=== PATIENT | male | born 1940 | race Two or more races ===

== ENCOUNTER 2024-07-19 05:40 | Inpatient (IN) | payer MEDICARE, BC ==
[2024-07-19] VITALS (11 sets, daily range): BP systolic 90–157; BP diastolic 61–97; PULSE 61–88; RESP 18; TEMP 97.5; O2SAT 98–100
[~2024-07-19] VITALS: Ht 167.6 cm; Wt 76.3 kg
[~2024-07-19 05:40] MED LIST: POM PO; TRAV0.0013 EACHEYE
[2024-07-19] MEDS: ROCURONIUM 10MG/ML 10ML VIAL IV ONE ×2 (05:44→05:47)
[2024-07-19] MEDS: ETOMIDATE (2MG/ML) 20ML VIAL IV ONE ×2 (05:47→07:01)
[2024-07-19] MEDS: PHENYLEPHRINE IV 250 ML IV SCH (05:56)
[2024-07-19] MEDS: PHENYLEPHRINE IV 250 ML IV ONE (06:02)
[2024-07-19] MEDS: PROPOFOL 100 ML IV SCH (06:30)
[2024-07-19] MEDS: PROPOFOL 100 ML IV ONE (06:30)
[2024-07-19 06:35] LABS: INR 1.13 (0.9-1.15); Partial Thromboplastin Time 25.6 SEC (24.5-34.5); Prothrombin Time 11.9 sec (9.3-11.8)
[2024-07-19 06:37] LABS: Hematocrit 30.2 % (41.0-53.0); Hemoglobin 10.1 g/dL (13.5-17.5); Mean Corpuscular Hemoglobin 32.3 pg (28.0-32.0); Mean Corpuscular Hgb Conc. 33.6 g/dL (32.0-36.0); Mean Corpuscular Volume 96.2 fL (80.0-100.0); Platelet Count (auto) 175 10^3/uL (140-450); Red Blood Cells 3.13 10^6/uL (4.5-5.90); Red Cell Distribution Width 16.7 % (11.8-14.3); White Blood Cell 3.4 10^3/uL (4.4-10.8)
[2024-07-19 06:44] LABS: Alanine Aminotransferase 365 U/L (7-40); Albumin 3.4 g/dL (3.2-4.8); Alkaline Phosphatase 72 U/L (46-116); Anion Gap 13 (5-15); Aspartate Aminotransferase 372 U/L (13-40); BUN/Creatinine Ratio 12.7 (10.0-20.0); Bilirubin, Total 0.5 mg/dL (0.2-1.0); Blood Urea Nitrogen 14 mg/dL (9-23); Calcium 8.1 mg/dL (8.7-10.4); Carbon Dioxide 19 mmol/L (20-31); Chloride 110 mmol/L (98-107); Glucose 251 mg/dL (74-106); Magnesium 1.4 mg/dL (1.6-2.6); Sodium 142 mmol/L (136-145); Total Protein 5.1 g/dL (5.7-8.2)
[2024-07-19] MEDS: SODIUM CHLORIDE 0.9% 1,000 ML IV ONE (07:06)
[2024-07-19 07:19] LABS: Basophils % (manual) 0 (0.0-2.0); Blast Cells 0; Metamyelocytes % 0; Myelocytes % 0; Promyelocytes % 0
[2024-07-19 07:58] LABS: Base Excess -6.7 mmol/L (-2.0-3.0)
[2024-07-19] MEDS: NITROGLYCERIN 2% OINT 1GM PKG TD ONE (08:22)
[2024-07-19 08:31] LABS: Anisocytosis Slight; Band Neutrophils % (manual) 4; Eosinophils % (manual) 1 (0-7); Lymphocytes % (manual) 56 (10.0-50.0); Monocytes % (manual) 6 (0-12); Ovalocytes FEW; Platelet Estimate Adequate; Reactive Lymphocytes 1; Tear Drop Cells FEW
[2024-07-19] MEDS: POTASSIUM CHL 20MEQ/100ML 100 ML IV SCH (08:50)
[2024-07-19 10:02] LABS: Urine Bacteria FEW /hpf (None Seen); Urine Blood 3+ /uL (Negative); Urine Protein, UAD 2+ (Negative); Urine Specific Gravity 1.011 (1.001-1.035); Urine Urobilinogen Normal (Negative); Urine WBC 8 /hpf (0 - 3)
[2024-07-19 10:05] LABS: Urine Clarity Cloudy (Clear); Urine Color Yellow (Yellow)
[2024-07-19] MEDS ORDERED: APIX2.5T PO (12:29)
[2024-07-19] MEDS ORDERED: DEXA4TAB PO (12:29)
[2024-07-19] MEDS ORDERED: LOS25T PO (12:29)
[2024-07-19] MEDS ORDERED: COLE1TAB2 PO (12:29)
[2024-07-19] MEDS ORDERED: SITA100T23 PO (12:29)
[2024-07-19] MEDS ORDERED: ATOR20TA50 PO (12:29)
[2024-07-19] MEDS ORDERED: BRIM0.2S17 RIGHTEYE (12:29)
[2024-07-19] MEDS ORDERED: NITROGLYCERIN 0.4 MG SL TAB SL PRN (12:30)
[2024-07-19] MEDS ORDERED: LORazepam 2MG/ML-1ML VIAL IV PRN (12:30)
[2024-07-19] MEDS ORDERED: MORPHINE SULFATE 4 MG/ML SYR/VIAL IV PRN (12:30)
[2024-07-19] MEDS ORDERED: MORPHINE SULFATE INJ 2 MG/ml SYRG IV PRN ×2 (12:30)
[2024-07-19] MEDS ORDERED: DEXTROSE (50%) 50ML SYRG IV PRN (12:30)
[2024-07-19 13:01] LABS: Triglycerides 89 mg/dL (< 150)
[2024-07-19 13:02] LABS: LDL Cholesterol 24 mg/dL (< 100)
[2024-07-19] MEDS: SODIUM CHLORIDE 0.9% 1,000 ML IV SCH (13:02)
[2024-07-19 13:03] LABS: Cholesterol 72 mg/dL (< 200); HDL Cholesterol 33 mg/dL (40-59)
[2024-07-19] MEDS: MAGNESIUM SULFATE 1GM/100ML 100 ML IV SCH (13:13)
[2024-07-19 14:08] LABS: Lactic Acid w/Reflex 3.8 mmol/L (0.4-2.0)
[2024-07-19] MEDS: SODIUM CHLORIDE 0.9% 2,000 ML IV ONE (14:27)
[2024-07-19] MEDS: VASOPRESSIN 20 UNITS in SODIUM CHL 0.9% 99 ML IV SCH (14:34)
[2024-07-19] MEDS: ALBUTEROL SULF 2.5 MG/0.5ML(0.5%) NEB SOLN NEB SCH (15:10)
[2024-07-19] MEDS: IPRATROPIUM BROM 0.5 MG/2.5ML INH SOL NEB SCH (15:10)
[2024-07-19] MEDS ORDERED: AMIODARONE 450mg/250ml AE 250 ML IV SCH ×2 (15:15→21:15)
[2024-07-19] MEDS: ACCU-CHEK COMFORT CURVE STRIP VI SCH (16:01)
[2024-07-19] MEDS: InsuLIN REG 1unit/0.01ml Soln (100units/ml) SC SCH (16:07)
[2024-07-20] VITALS (85 sets, daily range): BP systolic 85–142; BP diastolic 32–94; PULSE 61–97; RESP 11–30; TEMP 98.1–101.5; O2SAT 76–100
[2024-07-20 04:40] LABS: Hematocrit 33.4 % (41.0-53.0); Hemoglobin 11.2 g/dL (13.5-17.5); Mean Corpuscular Hemoglobin 32.7 pg (28.0-32.0); Mean Corpuscular Hgb Conc. 33.4 g/dL (32.0-36.0); Mean Corpuscular Volume 97.9 fL (80.0-100.0); Platelet Count (auto) 171 10^3/uL (140-450); Red Blood Cells 3.41 10^6/uL (4.5-5.90); Red Cell Distribution Width 17.5 % (11.8-14.3); White Blood Cell 5.2 10^3/uL (4.4-10.8)
[2024-07-20 04:44] LABS: Band Neutrophils % (manual) 0; Basophils % (manual) 0 (0.0-2.0); Blast Cells 0; Eosinophils % (manual) 0 (0-7); Metamyelocytes % 0; Myelocytes % 0; Promyelocytes % 0; Reactive Lymphocytes 0
[2024-07-20 05:05] LABS: Alanine Aminotransferase 272 U/L (7-40); Albumin 3.4 g/dL (3.2-4.8); Alkaline Phosphatase 72 U/L (46-116); Anion Gap 16 (5-15); Aspartate Aminotransferase 126 U/L (13-40); BUN/Creatinine Ratio 10.5 (10.0-20.0); Bilirubin, Total 0.5 mg/dL (0.2-1.0); Blood Urea Nitrogen 11 mg/dL (9-23); Calcium 7.6 mg/dL (8.7-10.4); Carbon Dioxide 18 mmol/L (20-31); Chloride 111 mmol/L (98-107); Glucose 191 mg/dL (74-106); Potassium 3.6 mmol/L (3.5-5.1); Sodium 145 mmol/L (136-145); Total Protein 5.1 g/dL (5.7-8.2)
[2024-07-20 05:15] LABS: Lactic Acid w/Reflex 6.4 mmol/L (0.4-2.0)
[2024-07-20 06:32] LABS: Base Excess -7.6 mmol/L (-2.0-3.0)
[2024-07-20] MEDS: PANTOPRAZOLE 40 MG/10 ML VIAL INJ IV SCH (08:17)
[2024-07-20] MEDS: ENOXAPARIN SOD 40 MG/0.4 ML SYRINGE SC SCH (08:17)
[2024-07-20 08:49] LABS: Lymphocytes % (manual) 30 (10.0-50.0); Monocytes % (manual) 14 (0-12)
[2024-07-20 08:50] LABS: Anisocytosis Slight; Ovalocytes FEW; Platelet Estimate Adequate
[2024-07-20] MEDS ORDERED: ENOXAPARIN SOD 40 MG/0.4 ML SYRINGE SC SCH (10:00)
[2024-07-20] MEDS ORDERED: VANCOMYCIN PER PHARMACY 0 MG IV SCH (10:45)
[2024-07-20] MEDS: NOREPINEPHRINE 8 MG/250ML KIT 250 ML IV SCH (11:16)
[2024-07-20 12:07] LABS: Base Excess -9.6 mmol/L (-2.0-3.0)
[2024-07-20] MEDS: fentaNYL Drip 2500mCg/250mlNS 250 ML IV SCH (12:24)
[2024-07-20] MEDS ORDERED: VANCOMYCIN 1GM/200ML PREMIX 200 ML IV SCH (12:30)
[2024-07-20] MEDS ORDERED: CEFEPIME 2GM/50ML NS 50 ML IV SCH (14:00)
[2024-07-20] MEDS: VANCOMYCIN 1,000 MG in D5W 5% 250 ML IV SCH (14:59)
[2024-07-20] MEDS: InsuLIN REG 1unit/0.01ml Soln (100units/ml) SC SCH (17:32)
[2024-07-20] MEDS: ACCU-CHEK COMFORT CURVE STRIP VI SCH (17:33)
[2024-07-20 18:59] LABS: Urine Bacteria FEW /hpf (None Seen); Urine Blood 2+ /uL (Negative); Urine Clarity Clear (Clear); Urine Mucus FEW (None Seen); Urine Protein, UAD Negative (Negative); Urine Specific Gravity 1.009 (1.001-1.035); Urine Urobilinogen Normal (Negative); Urine WBC 4 /hpf (0 - 3)
[2024-07-20 19:02] LABS: Urine Color Straw (Yellow)
[2024-07-20] MEDS: CEFEPIME 2GM/50ML NS 50 ML IV SCH (21:44)
[2024-07-20] MEDS: ACETAMINOPHEN 650 mg PER 20.3 mL UD PO PRN (21:44)
[2024-07-21] VITALS (107 sets, daily range): BP systolic 88–121; BP diastolic 14–70; PULSE 63–124; RESP 10–31; TEMP 96.1–100.4; O2SAT 86–100
[2024-07-21 04:38] LABS: Urine Bacteria None Seen /hpf (None Seen)
[2024-07-21 04:59] LABS: Alanine Aminotransferase 230 U/L (7-40); Alkaline Phosphatase 67 U/L (46-116); Anion Gap 12 (5-15); Calcium 7.7 mg/dL (8.7-10.4); Carbon Dioxide 19 mmol/L (20-31); Chloride 110 mmol/L (98-107); Glucose 284 mg/dL (74-106); Magnesium 1.6 mg/dL (1.6-2.6); Potassium 2.9 mmol/L (3.5-5.1); Sodium 141 mmol/L (136-145)
[2024-07-21 05:00] LABS: Albumin 3.2 g/dL (3.2-4.8); Aspartate Aminotransferase 59 U/L (13-40); BUN/Creatinine Ratio 12.3 (10.0-20.0); Bilirubin, Total 0.8 mg/dL (0.2-1.0); Blood Urea Nitrogen 14 mg/dL (9-23); Total Protein 5.1 g/dL (5.7-8.2)
[2024-07-21 05:22] LABS: Lactic Acid w/Reflex 6.5 mmol/L (0.4-2.0)
[2024-07-21 05:35] LABS: Urine Amorphous Crystal FEW /hpf (None Seen); Urine Blood 2+ /uL (Negative); Urine Clarity Ex.Turbid (Clear); Urine Color Light-Orange (Yellow); Urine Mucus FEW (None Seen); Urine Protein, UAD 1+ (Negative); Urine Specific Gravity 1.033 (1.001-1.035); Urine Urobilinogen Normal (Negative); Urine WBC 10 /hpf (0 - 3)
[2024-07-21 06:30] LABS: Base Excess -10.9 mmol/L (-2.0-3.0)
[2024-07-21 06:33] LABS: Hematocrit 29.6 % (41.0-53.0); Hemoglobin 10.1 g/dL (13.5-17.5); Mean Corpuscular Hemoglobin 32.9 pg (28.0-32.0); Mean Corpuscular Volume 96.6 fL (80.0-100.0); Platelet Count (auto) 142 10^3/uL (140-450); Red Blood Cells 3.07 10^6/uL (4.5-5.90); Red Cell Distribution Width 17.1 % (11.8-14.3); White Blood Cell 4.7 10^3/uL (4.4-10.8)
[2024-07-21 06:44] LABS: Basophils % (manual) 0 (0.0-2.0); Blast Cells 0; Eosinophils % (manual) 0 (0-7); Metamyelocytes % 0; Myelocytes % 0; Promyelocytes % 0; Reactive Lymphocytes 0
[2024-07-21] MEDS: ALBUMIN 25% 50 ML IV SCH (09:00)
[2024-07-21] MEDS: MAGNESIUM SULFATE 1GM/100ML 100 ML IV ONE ×2 (09:16→23:53)
[2024-07-21 09:31] LABS: Band Neutrophils % (manual) 2; Lymphocytes % (manual) 13 (10.0-50.0); Monocytes % (manual) 20 (0-12); Platelet Estimate Adequate
[2024-07-21] MEDS: POTASSIUM CHL 20MEQ/100ML 100 ML IV SCH (10:23)
[2024-07-21] MEDS: FUROSEMIDE 20 MG/2 ML VIAL IV SCH ×2 (10:35→18:55)
[2024-07-21 13:31] LABS: Base Excess -7.6 mmol/L (-2.0-3.0)
[2024-07-21] MEDS: VANCOMYCIN 1GM/250ML 250 ML IV SCH (17:00)
[2024-07-21 21:29] LABS: Chloride 110 mmol/L (98-107); Potassium 2.9 mmol/L (3.5-5.1); Sodium 141 mmol/L (136-145)
[2024-07-21 21:30] LABS: Anion Gap 7 (5-15); Calcium 8.1 mg/dL (8.7-10.4); Carbon Dioxide 24 mmol/L (20-31)
[2024-07-21 21:35] LABS: BUN/Creatinine Ratio 12.5 (10.0-20.0); Blood Urea Nitrogen 16 mg/dL (9-23)
[2024-07-21 21:38] LABS: Glucose 133 mg/dL (74-106)
[2024-07-21] MEDS: POTASSIUM CHL 20MEQ/100ML 100 ML IV ONE (23:53)
[2024-07-22] VITALS (108 sets, daily range): BP systolic 84–123; BP diastolic 55–82; PULSE 58–93; RESP 14–26; TEMP 96.1–100.4; O2SAT 86–100
[2024-07-22 05:52] LABS: Hemoglobin 8.8 g/dL (13.5-17.5); Mean Corpuscular Volume 94.6 fL (80.0-100.0)
[2024-07-22 05:54] LABS: Hematocrit 25.2 % (41.0-53.0); Mean Corpuscular Hemoglobin 32.8 pg (28.0-32.0); Mean Corpuscular Hgb Conc. 34.7 g/dL (32.0-36.0); Platelet Count (auto) 106 10^3/uL (140-450); Red Blood Cells 2.67 10^6/uL (4.5-5.90); Red Cell Distribution Width 17.3 % (11.8-14.3)
[2024-07-22 06:07] LABS: Alanine Aminotransferase 151 U/L (7-40); Albumin 3.3 g/dL (3.2-4.8); Alkaline Phosphatase 56 U/L (46-116); Anion Gap 8 (5-15); Aspartate Aminotransferase 36 U/L (13-40); BUN/Creatinine Ratio 13.8 (10.0-20.0); Blood Urea Nitrogen 18 mg/dL (9-23); Calcium 7.6 mg/dL (8.7-10.4); Carbon Dioxide 21 mmol/L (20-31); Chloride 110 mmol/L (98-107); Glucose 209 mg/dL (74-106); Potassium 4.1 mmol/L (3.5-5.1); Sodium 139 mmol/L (136-145)
[2024-07-22 06:08] LABS: Bilirubin, Total 1.1 mg/dL (0.2-1.0); Total Protein 4.9 g/dL (5.7-8.2)
[2024-07-22 06:29] LABS: White Blood Cell 1.2 10^3/uL (4.4-10.8)
[2024-07-22 06:34] LABS: Basophils % (manual) 0 (0.0-2.0); Blast Cells 0; Metamyelocytes % 0; Myelocytes % 0; Promyelocytes % 0; Reactive Lymphocytes 0
[2024-07-22 08:45] LABS: Band Neutrophils % (manual) 6; Eosinophils % (manual) 1 (0-7); Lymphocytes % (manual) 19 (10.0-50.0); Monocytes % (manual) 30 (0-12); Platelet Estimate Decreased
[2024-07-22 12:14] LABS: Hematocrit 26.1 % (41.0-53.0); Hemoglobin 9.2 g/dL (13.5-17.5); Mean Corpuscular Hemoglobin 33.3 pg (28.0-32.0); Mean Corpuscular Hgb Conc. 35.3 g/dL (32.0-36.0); Mean Corpuscular Volume 94.2 fL (80.0-100.0); Platelet Count (auto) 111 10^3/uL (140-450); Red Blood Cells 2.77 10^6/uL (4.5-5.90); Red Cell Distribution Width 17.4 % (11.8-14.3)
[2024-07-22 12:18] LABS: Basophils % (manual) 0 (0.0-2.0); Blast Cells 0; Eosinophils % (manual) 0 (0-7); Metamyelocytes % 0; Myelocytes % 0; Promyelocytes % 0; Reactive Lymphocytes 0
[2024-07-22 13:42] LABS: Band Neutrophils % (manual) 12; Lymphocytes % (manual) 16 (10.0-50.0); Monocytes % (manual) 23 (0-12)
[2024-07-22 13:43] LABS: Platelet Estimate Decreased
[2024-07-22 13:43] LABS: INR 1.13 (0.9-1.15); Partial Thromboplastin Time 43.8 SEC (24.5-34.5); Prothrombin Time 11.9 sec (9.3-11.8)
[2024-07-22] MEDS: LIDOCAINE 1% (LOCAL ANESTH.) PF 5ml SDV ID ONE (15:00)
[2024-07-22] MEDS: VANCOMYCIN 1GM/200ML PREMIX 0 ML IV ONE (17:15)
[2024-07-22] MEDS ORDERED: VANCOMYCIN 1GM/250ML 250 ML IV ONE (17:15)
[2024-07-22] MEDS: VANCOMYCIN 1GM/250ML 250 ML IV ONE (17:37)
[2024-07-22] MEDS: SODIUM CHLOR 0.9% PF (SALINE LOCK) 10ML VIAL/SYR IV SCH (22:24)
[2024-07-23] VITALS (105 sets, daily range): BP systolic 86–125; BP diastolic 48–82; PULSE 61–104; RESP 17–25; TEMP 97.5–98.7; O2SAT 93–100
[2024-07-23 04:10] LABS: Hematocrit 24.7 % (41.0-53.0); Hemoglobin 8.5 g/dL (13.5-17.5); Mean Corpuscular Hemoglobin 32.4 pg (28.0-32.0); Mean Corpuscular Hgb Conc. 34.3 g/dL (32.0-36.0); Mean Corpuscular Volume 94.5 fL (80.0-100.0); Platelet Count (auto) 100 10^3/uL (140-450); Red Blood Cells 2.61 10^6/uL (4.5-5.90); Red Cell Distribution Width 17.4 % (11.8-14.3); White Blood Cell 2.5 10^3/uL (4.4-10.8)
[2024-07-23 04:23] LABS: Basophils % (manual) 0 (0.0-2.0); Blast Cells 0; Eosinophils % (manual) 0 (0-7); Metamyelocytes % 0; Promyelocytes % 0; Reactive Lymphocytes 0
[2024-07-23 04:24] LABS: Alanine Aminotransferase 126 U/L (7-40); Albumin 3.2 g/dL (3.2-4.8); Alkaline Phosphatase 53 U/L (46-116); Anion Gap 8 (5-15); Aspartate Aminotransferase 26 U/L (13-40); BUN/Creatinine Ratio 17.1 (10.0-20.0); Blood Urea Nitrogen 25 mg/dL (9-23); Calcium 8.2 mg/dL (8.7-10.4); Carbon Dioxide 24 mmol/L (20-31); Chloride 107 mmol/L (98-107); Glucose 161 mg/dL (74-106); Sodium 139 mmol/L (136-145)
[2024-07-23 04:25] LABS: Bilirubin, Total 0.9 mg/dL (0.2-1.0)
[2024-07-23] MEDS: POTASSIUM CHL 20MEQ/100ML 100 ML IV ONE ×2 (05:47→10:23)
[2024-07-23 06:53] LABS: Band Neutrophils % (manual) 5; Lymphocytes % (manual) 19 (10.0-50.0); Monocytes % (manual) 17 (0-12); Myelocytes % 1; Platelet Estimate Decreased
[2024-07-23 06:54] LABS: Ovalocytes FEW
[2024-07-23 06:55] LABS: Anisocytosis Slight
[2024-07-23 08:02] LABS: Base Excess -1.7 mmol/L (-2.0-3.0)
[2024-07-23] MEDS: VANCOMYCIN 1GM/200ML PREMIX 200 ML IV ONE (17:00)
[2024-07-23] MEDS: PIPERACILLIN-TAZOB 3.375GM 100 ML IV SCH (22:07)
[2024-07-24] VITALS (108 sets, daily range): BP systolic 83–130; BP diastolic 34–89; PULSE 68–99; RESP 16–24; TEMP 97.6–98.8; O2SAT 94–100
[2024-07-24] MEDS: Glucerna 1.2 Cal 1Liter BOTTLE GT SCH (00:16)
[2024-07-24 04:46] LABS: Basophils # (auto) 0 10 ^3/uL (0-0.2); Basophils % (auto) 0.2 % (0.0-2.0); Eosinophils # (auto) 0 10 ^3/uL (0-0.8); Eosinophils % (auto) 0.4 % (0.0-7.0); Hematocrit 24.7 % (41.0-53.0); Hemoglobin 8.6 g/dL (13.5-17.5); Lymphocytes # (auto) 0.5 10 ^3/uL (0.4-5.4); Lymphocytes % (auto) 11.9 % (10.0-50.0); Mean Corpuscular Hemoglobin 32.7 pg (28.0-32.0); Mean Corpuscular Hgb Conc. 34.9 g/dL (32.0-36.0); Mean Corpuscular Volume 93.7 fL (80.0-100.0); Monocytes # (auto) 0.6 10 ^3/uL (0-1.3); Monocytes % (auto) 16.3 % (0.0-12.0); Neutrophils # (auto) 2.7 10 ^3/uL (1.6-8.6); Neutrophils % (auto) 71.2 % (37.0-80.0); Nucleated Red Blood Cells % 0.4 %; Platelet Count (auto) 98 10^3/uL (140-450); Red Blood Cells 2.64 10^6/uL (4.5-5.90); Red Cell Distribution Width 17.3 % (11.8-14.3); White Blood Cell 3.8 10^3/uL (4.4-10.8)
[2024-07-24 05:04] LABS: Alanine Aminotransferase 90 U/L (7-40); Albumin 3.3 g/dL (3.2-4.8); Alkaline Phosphatase 55 U/L (46-116); Anion Gap 7 (5-15); Aspartate Aminotransferase 20 U/L (13-40); BUN/Creatinine Ratio 20.8 (10.0-20.0); Blood Urea Nitrogen 31 mg/dL (9-23); Calcium 8.8 mg/dL (8.7-10.4); Carbon Dioxide 26 mmol/L (20-31); Chloride 106 mmol/L (98-107); Glucose 173 mg/dL (74-106); Magnesium 1.9 mg/dL (1.6-2.6); Potassium 3.3 mmol/L (3.5-5.1); Sodium 139 mmol/L (136-145)
[2024-07-24 05:05] LABS: Bilirubin, Total 0.8 mg/dL (0.2-1.0); Total Protein 5.1 g/dL (5.7-8.2)
[2024-07-24] MEDS: POTASSIUM CHL 20MEQ/100ML 100 ML IV ONE ×2 (06:25→12:45)
[2024-07-24 06:48] LABS: Base Excess 0.8 mmol/L (-2.0-3.0)
[2024-07-24] MEDS: FUROSEMIDE 20 MG/2 ML VIAL IV SCH (06:49)
[2024-07-24] MEDS ORDERED: levoFLOXacin 500MG 100 ML IV SCH (10:00)
[2024-07-25] VITALS (106 sets, daily range): BP systolic 80–135; BP diastolic 43–79; PULSE 71–106; RESP 16–28; TEMP 97.2–98.6; O2SAT 95–100
[2024-07-25 05:05] LABS: Basophils # (auto) 0 10 ^3/uL (0-0.2); Basophils % (auto) 0.5 % (0.0-2.0); Eosinophils # (auto) 0 10 ^3/uL (0-0.8); Eosinophils % (auto) 0.6 % (0.0-7.0); Hematocrit 25.8 % (41.0-53.0); Hemoglobin 8.9 g/dL (13.5-17.5); Lymphocytes # (auto) 0.4 10 ^3/uL (0.4-5.4); Lymphocytes % (auto) 9.9 % (10.0-50.0); Mean Corpuscular Hgb Conc. 34.6 g/dL (32.0-36.0); Mean Corpuscular Volume 95.2 fL (80.0-100.0); Monocytes # (auto) 0.5 10 ^3/uL (0-1.3); Neutrophils # (auto) 3.1 10 ^3/uL (1.6-8.6); Nucleated Red Blood Cells % 0.3 %; Platelet Count (auto) 102 10^3/uL (140-450); Red Blood Cells 2.71 10^6/uL (4.5-5.90); Red Cell Distribution Width 17.6 % (11.8-14.3); White Blood Cell 4.1 10^3/uL (4.4-10.8)
[2024-07-25 05:20] LABS: Alanine Aminotransferase 68 U/L (7-40); Alkaline Phosphatase 63 U/L (46-116); Anion Gap 8 (5-15); BUN/Creatinine Ratio 17.6 (10.0-20.0); Blood Urea Nitrogen 30 mg/dL (9-23); Calcium 8.8 mg/dL (8.7-10.4); Carbon Dioxide 26 mmol/L (20-31); Chloride 107 mmol/L (98-107); Glucose 196 mg/dL (74-106); Magnesium 2.1 mg/dL (1.6-2.6); Potassium 3.3 mmol/L (3.5-5.1); Sodium 141 mmol/L (136-145); Uric Acid 3.2 mg/dL (3.7-9.2)
[2024-07-25 05:21] LABS: Albumin 3.3 g/dL (3.2-4.8); Aspartate Aminotransferase 17 U/L (13-40)
[2024-07-25 05:22] LABS: Bilirubin, Total 0.6 mg/dL (0.2-1.0); Total Protein 5.3 g/dL (5.7-8.2)
[2024-07-25] MEDS: POTASSIUM CHL 20MEQ/100ML 100 ML IV ONE (07:40)
[2024-07-25 08:00] LABS: Base Excess 1.4 mmol/L (-2.0-3.0)
[2024-07-25] MEDS: Glucerna 1.2 Cal 1Liter BOTTLE GT SCH (08:12)
[2024-07-26] VITALS (107 sets, daily range): BP systolic 84–132; BP diastolic 34–74; PULSE 72–111; RESP 13–30; TEMP 97.6–98.8; O2SAT 93–100
[2024-07-26 04:46] LABS: Basophils # (auto) 0 10 ^3/uL (0-0.2); Basophils % (auto) 0.4 % (0.0-2.0); Eosinophils # (auto) 0 10 ^3/uL (0-0.8); Hematocrit 27.6 % (41.0-53.0); Hemoglobin 9.5 g/dL (13.5-17.5); Lymphocytes # (auto) 0.8 10 ^3/uL (0.4-5.4); Lymphocytes % (auto) 18.7 % (10.0-50.0); Mean Corpuscular Hemoglobin 32.5 pg (28.0-32.0); Mean Corpuscular Hgb Conc. 34.5 g/dL (32.0-36.0); Mean Corpuscular Volume 94.3 fL (80.0-100.0); Monocytes # (auto) 0.5 10 ^3/uL (0-1.3); Monocytes % (auto) 10.5 % (0.0-12.0); Neutrophils % (auto) 69.4 % (37.0-80.0); Nucleated Red Blood Cells % 0.1 %; Platelet Count (auto) 98 10^3/uL (140-450); Red Blood Cells 2.92 10^6/uL (4.5-5.90); Red Cell Distribution Width 17.7 % (11.8-14.3); White Blood Cell 4.4 10^3/uL (4.4-10.8)
[2024-07-26 05:01] LABS: Alanine Aminotransferase 65 U/L (7-40); Albumin 3.3 g/dL (3.2-4.8); Alkaline Phosphatase 86 U/L (46-116); Anion Gap 9 (5-15); Aspartate Aminotransferase 24 U/L (13-40); Bilirubin, Total 0.6 mg/dL (0.2-1.0); Blood Urea Nitrogen 34 mg/dL (9-23); Calcium 8.7 mg/dL (8.7-10.4); Carbon Dioxide 27 mmol/L (20-31); Chloride 108 mmol/L (98-107); Glucose 219 mg/dL (74-106); Phosphorus 4.4 mg/dL (2.4-5.1); Potassium 3.5 mmol/L (3.5-5.1); Sodium 144 mmol/L (136-145); Total Protein 5.4 g/dL (5.7-8.2)
[2024-07-26 06:17] LABS: Base Excess 1.5 mmol/L (-2.0-3.0)
[2024-07-26] MEDS: PROPOFOL 100 ML IV SCH (06:45)
[2024-07-26] MEDS: NOREPINEPHRINE 8 MG/250ML KIT 250 ML IV ONE (13:53)
[2024-07-27] VITALS (105 sets, daily range): BP systolic 80–135; BP diastolic 50–88; PULSE 60–99; RESP 14–25; TEMP 97.7–100.2; O2SAT 93–100
[2024-07-27 05:02] LABS: Alanine Aminotransferase 56 U/L (7-40); Albumin 3.3 g/dL (3.2-4.8); Alkaline Phosphatase 83 U/L (46-116); Anion Gap 9 (5-15); Aspartate Aminotransferase 34 U/L (13-40); BUN/Creatinine Ratio 19.8 (10.0-20.0); Bilirubin, Total 0.5 mg/dL (0.2-1.0); Blood Urea Nitrogen 33 mg/dL (9-23); Calcium 8.5 mg/dL (8.7-10.4); Carbon Dioxide 27 mmol/L (20-31); Chloride 109 mmol/L (98-107); Glucose 189 mg/dL (74-106); Potassium 3.6 mmol/L (3.5-5.1); Sodium 145 mmol/L (136-145); Total Protein 5.2 g/dL (5.7-8.2)
[2024-07-27 07:47] LABS: Basophils # (auto) 0 10 ^3/uL (0-0.2); Basophils % (auto) 0.6 % (0.0-2.0); Eosinophils # (auto) 0.1 10 ^3/uL (0-0.8); Eosinophils % (auto) 1.4 % (0.0-7.0); Hematocrit 26.2 % (41.0-53.0); Hemoglobin 8.9 g/dL (13.5-17.5); Lymphocytes # (auto) 0.7 10 ^3/uL (0.4-5.4); Lymphocytes % (auto) 15.5 % (10.0-50.0); Mean Corpuscular Hemoglobin 32.1 pg (28.0-32.0); Mean Corpuscular Volume 94.5 fL (80.0-100.0); Monocytes # (auto) 0.4 10 ^3/uL (0-1.3); Monocytes % (auto) 9.3 % (0.0-12.0); Neutrophils # (auto) 3.2 10 ^3/uL (1.6-8.6); Neutrophils % (auto) 73.2 % (37.0-80.0); Nucleated Red Blood Cells % 0.1 %; Platelet Count (auto) 93 10^3/uL (140-450); Red Blood Cells 2.78 10^6/uL (4.5-5.90); Red Cell Distribution Width 17.5 % (11.8-14.3); White Blood Cell 4.4 10^3/uL (4.4-10.8)
[2024-07-27 08:21] LABS: Base Excess 0.4 mmol/L (-2.0-3.0)
[2024-07-27 12:15] LABS: Magnesium 1.9 mg/dL (1.6-2.6); Phosphorus 4.1 mg/dL (2.4-5.1)
[2024-07-27 14:45] LABS: Urine Bacteria FEW /hpf (None Seen); Urine Blood 2+ /uL (Negative); Urine Clarity Turbid (Clear); Urine Color Colorless (Yellow); Urine Hyaline Cast FEW /lpf (0 - 2); Urine Mucus FEW (None Seen); Urine Protein, UAD 1+ (Negative); Urine Specific Gravity 1.018 (1.001-1.035); Urine Urobilinogen Normal (Negative); Urine WBC 37 /hpf (0 - 3); Urine pH 5.5 (5.0-9.0)
[2024-07-27 14:57] LABS: Protein, Urine 107.8 mg/dL (1-14)
[2024-07-27 15:00] LABS: Creatinine, Urine 52.61 mg/dL (30.0-125.0); Urine Protein/Creatinine Ratio 2.05
[2024-07-27] MEDS: methylPREDNISolone SOD SUCC 40 MG/ML VL IV ONE (15:39)
[2024-07-27] MEDS: methylPREDNISolone SOD SUCC 40 MG/ML VL IV SCH (22:16)
[2024-07-27] MEDS: BRIMONIDINE 0.2% OPTH Soln 5ml RIGHTEYE SCH (22:17)
[2024-07-28] VITALS (109 sets, daily range): BP systolic 76–136; BP diastolic 48–88; PULSE 68–110; RESP 12–33; TEMP 97.7–98.4; O2SAT 78–100
[2024-07-28 05:50] LABS: Basophils # (auto) 0.1 10 ^3/uL (0-0.2); Eosinophils # (auto) 0.6 10 ^3/uL (0-0.8); Eosinophils % (auto) 5.7 % (0.0-7.0); Lymphocytes # (auto) 1.2 10 ^3/uL (0.4-5.4); Mean Corpuscular Hemoglobin 36.5 pg (28.0-32.0); Monocytes # (auto) 0.7 10 ^3/uL (0-1.3); Neutrophils # (auto) 7.2 10 ^3/uL (1.6-8.6); White Blood Cell 9.7 10^3/uL (4.4-10.8)
[2024-07-28 05:53] LABS: Basophils % (auto) 0.7 % (0.0-2.0); Hematocrit 31.1 % (41.0-53.0); Hemoglobin 10.9 g/dL (13.5-17.5); Lymphocytes % (auto) 12.4 % (10.0-50.0); Mean Corpuscular Hgb Conc. 34.9 g/dL (32.0-36.0); Mean Corpuscular Volume 104.6 fL (80.0-100.0); Monocytes % (auto) 6.7 % (0.0-12.0); Neutrophils % (auto) 74.5 % (37.0-80.0); Nucleated Red Blood Cells % 0.2 %; Platelet Count (auto) 195 10^3/uL (140-450); Red Blood Cells 2.98 10^6/uL (4.5-5.90)
[2024-07-28 06:01] LABS: Base Excess 1.9 mmol/L (-2.0-3.0)
[2024-07-28 06:20] LABS: Carbon Dioxide 22 mmol/L (20-31); Chloride 112 mmol/L (98-107); Potassium 3.5 mmol/L (3.5-5.1)
[2024-07-28 06:21] LABS: Anion Gap 9 (5-15); Sodium 143 mmol/L (136-145)
[2024-07-28 06:22] LABS: Calcium 8.5 mg/dL (8.7-10.4)
[2024-07-28 06:27] LABS: Glucose 128 mg/dL (74-106); Magnesium 1.8 mg/dL (1.6-2.6)
[2024-07-28 06:29] LABS: Blood Urea Nitrogen 6 mg/dL (9-23)
[2024-07-28] MEDS: MAGNESIUM SULFATE 1GM/100ML 100 ML IV ONE (07:15)
[2024-07-28 08:29] LABS: Basophils # (auto) 0 10 ^3/uL (0-0.2); Basophils % (auto) 0.2 % (0.0-2.0); Chloride 108 mmol/L (98-107); Eosinophils # (auto) 0 10 ^3/uL (0-0.8); Hematocrit 27.3 % (41.0-53.0); Hemoglobin 9.2 g/dL (13.5-17.5); Lymphocytes # (auto) 0.4 10 ^3/uL (0.4-5.4); Lymphocytes % (auto) 7.4 % (10.0-50.0); Mean Corpuscular Hemoglobin 32.1 pg (28.0-32.0); Mean Corpuscular Hgb Conc. 33.8 g/dL (32.0-36.0); Mean Corpuscular Volume 95.1 fL (80.0-100.0); Monocytes # (auto) 0.2 10 ^3/uL (0-1.3); Monocytes % (auto) 4.2 % (0.0-12.0); Neutrophils # (auto) 4.8 10 ^3/uL (1.6-8.6); Neutrophils % (auto) 88.2 % (37.0-80.0); Platelet Count (auto) 107 10^3/uL (140-450); Potassium 3.4 mmol/L (3.5-5.1); Red Blood Cells 2.87 10^6/uL (4.5-5.90); Red Cell Distribution Width 17.6 % (11.8-14.3); Sodium 145 mmol/L (136-145); White Blood Cell 5.4 10^3/uL (4.4-10.8)
[2024-07-28 08:30] LABS: Anion Gap 10 (5-15); Calcium 8.5 mg/dL (8.7-10.4); Carbon Dioxide 27 mmol/L (20-31)
[2024-07-28 08:35] LABS: BUN/Creatinine Ratio 22.2 (10.0-20.0)
[2024-07-28 08:41] LABS: Blood Urea Nitrogen 36 mg/dL (9-23); Glucose 295 mg/dL (74-106)
[2024-07-28 09:06] LABS: Kappa Lite Chain Free Serum 21.6 mg/L (3.3-19.4)
[2024-07-28] MEDS: POTASSIUM CHL 20MEQ/100ML 100 ML IV ONE (10:15)
[2024-07-28] MEDS: TRAVOPROST 0.004% EACHEYE SCH (10:16)
[2024-07-28] MEDS ORDERED: NOREPINEPHRINE 8 MG/250ML KIT 250 ML IV SCH (12:00)
[2024-07-28] MEDS: NOREPINEPHRINE 8 MG/250ML KIT 250 ML IV SCH (12:00)
[2024-07-28 12:07] LABS: Alpha-1-Globulin 0.5 g/dL (0.0-0.4); Alpha-2-Globulin 0.8 g/dL (0.4-1.0); Gamma Globulin 0.5 g/dL (0.4-1.8); Globulin Total 2.7 g/dL (2.2-3.9); Protein Total Serum 4.7 g/dL (6.0-8.5)
[2024-07-29] VITALS (107 sets, daily range): BP systolic 83–142; BP diastolic 53–91; PULSE 63–96; RESP 12–26; TEMP 97.8–99.5; O2SAT 95–100
[2024-07-29 04:13] LABS: Basophils # (auto) 0 10 ^3/uL (0-0.2); Eosinophils # (auto) 0 10 ^3/uL (0-0.8); Hematocrit 26.7 % (41.0-53.0); Hemoglobin 9.2 g/dL (13.5-17.5); Lymphocytes # (auto) 0.3 10 ^3/uL (0.4-5.4); Lymphocytes % (auto) 5.6 % (10.0-50.0); Mean Corpuscular Hemoglobin 32.7 pg (28.0-32.0); Mean Corpuscular Hgb Conc. 34.6 g/dL (32.0-36.0); Mean Corpuscular Volume 94.5 fL (80.0-100.0); Monocytes # (auto) 0.2 10 ^3/uL (0-1.3); Monocytes % (auto) 3.2 % (0.0-12.0); Neutrophils # (auto) 5.2 10 ^3/uL (1.6-8.6); Neutrophils % (auto) 91.2 % (37.0-80.0); Nucleated Red Blood Cells % 0.1 %; Platelet Count (auto) 118 10^3/uL (140-450); Red Blood Cells 2.82 10^6/uL (4.5-5.90); Red Cell Distribution Width 17.9 % (11.8-14.3); White Blood Cell 5.7 10^3/uL (4.4-10.8)
[2024-07-29 04:30] LABS: Alanine Aminotransferase 46 U/L (7-40); Alkaline Phosphatase 78 U/L (46-116); Anion Gap 9 (5-15); BUN/Creatinine Ratio 22.4 (10.0-20.0); Blood Urea Nitrogen 39 mg/dL (9-23); Calcium 8.9 mg/dL (8.7-10.4); Carbon Dioxide 27 mmol/L (20-31); Chloride 109 mmol/L (98-107); Glucose 275 mg/dL (74-106); Potassium 3.5 mmol/L (3.5-5.1); Sodium 145 mmol/L (136-145)
[2024-07-29 04:31] LABS: Albumin 3.6 g/dL (3.2-4.8); Aspartate Aminotransferase 29 U/L (13-40); Bilirubin, Total 0.6 mg/dL (0.2-1.0); Total Protein 5.5 g/dL (5.7-8.2)
[2024-07-29] MEDS: POTASSIUM CHL 20MEQ/100ML 100 ML IV ONE (06:34)
[2024-07-29 06:40] LABS: Base Excess 6.4 mmol/L (-2.0-3.0)
[2024-07-29] MEDS: TRAVOPROST 0.004% LEFTEYE SCH (09:59)
[2024-07-29] MEDS: POTASSIUM CHL 20MEQ/100ML 100 ML IV SCH (12:12)
[2024-07-30] VITALS (90 sets, daily range): BP systolic 87–126; BP diastolic 53–80; PULSE 73–104; RESP 11–22; TEMP 97.2–99.6; O2SAT 69–100
[2024-07-30 04:10] LABS: Basophils # (auto) 0 10 ^3/uL (0-0.2); Basophils % (auto) 0.1 % (0.0-2.0); Eosinophils # (auto) 0 10 ^3/uL (0-0.8); Hematocrit 26.6 % (41.0-53.0); Lymphocytes # (auto) 0.3 10 ^3/uL (0.4-5.4); Lymphocytes % (auto) 4.4 % (10.0-50.0); Mean Corpuscular Hemoglobin 32.1 pg (28.0-32.0); Mean Corpuscular Hgb Conc. 33.7 g/dL (32.0-36.0); Mean Corpuscular Volume 95.2 fL (80.0-100.0); Monocytes # (auto) 0.2 10 ^3/uL (0-1.3); Monocytes % (auto) 3.5 % (0.0-12.0); Neutrophils # (auto) 5.6 10 ^3/uL (1.6-8.6); Platelet Count (auto) 118 10^3/uL (140-450); Red Cell Distribution Width 18.3 % (11.8-14.3); White Blood Cell 6.1 10^3/uL (4.4-10.8)
[2024-07-30 04:24] LABS: Alanine Aminotransferase 54 U/L (7-40); Albumin 3.3 g/dL (3.2-4.8); Alkaline Phosphatase 73 U/L (46-116); Anion Gap 9 (5-15); Aspartate Aminotransferase 40 U/L (13-40); BUN/Creatinine Ratio 24.6 (10.0-20.0); Bilirubin, Total 0.6 mg/dL (0.2-1.0); Blood Urea Nitrogen 42 mg/dL (9-23); Calcium 8.8 mg/dL (8.7-10.4); Carbon Dioxide 26 mmol/L (20-31); Chloride 112 mmol/L (98-107); Glucose 264 mg/dL (74-106); Magnesium 2.3 mg/dL (1.6-2.6); Potassium 3.6 mmol/L (3.5-5.1); Sodium 147 mmol/L (136-145)
[2024-07-30 04:25] LABS: Total Protein 5.4 g/dL (5.7-8.2)
[2024-07-30 08:14] LABS: Base Excess 2.9 mmol/L (-2.0-3.0)
[2024-07-30 10:23] LABS: Base Excess 0.6 mmol/L (-2.0-3.0)
[2024-07-30] MEDS: FUROSEMIDE 20 MG/2 ML VIAL IV ONE (12:45)
[2024-07-30] MEDS: methylPREDNISolone SOD SUCC 40 MG/ML VL IV SCH (21:41)
[2024-07-31] VITALS (84 sets, daily range): BP systolic 88–119; BP diastolic 52–82; PULSE 71–89; RESP 10–22; TEMP 97.7–98.6; O2SAT 86–100
[2024-07-31 04:49] LABS: Basophils # (auto) 0 10 ^3/uL (0-0.2); Eosinophils # (auto) 0 10 ^3/uL (0-0.8); Hematocrit 28.9 % (41.0-53.0); Hemoglobin 9.9 g/dL (13.5-17.5); Lymphocytes # (auto) 0.4 10 ^3/uL (0.4-5.4); Lymphocytes % (auto) 5.6 % (10.0-50.0); Mean Corpuscular Hemoglobin 32.5 pg (28.0-32.0); Mean Corpuscular Hgb Conc. 34.3 g/dL (32.0-36.0); Mean Corpuscular Volume 94.9 fL (80.0-100.0); Monocytes # (auto) 0.3 10 ^3/uL (0-1.3); Monocytes % (auto) 4.7 % (0.0-12.0); Neutrophils % (auto) 89.7 % (37.0-80.0); Platelet Count (auto) 115 10^3/uL (140-450); Red Blood Cells 3.05 10^6/uL (4.5-5.90); Red Cell Distribution Width 18.1 % (11.8-14.3); White Blood Cell 6.7 10^3/uL (4.4-10.8)
[2024-07-31 05:05] LABS: Alanine Aminotransferase 51 U/L (7-40); Albumin 3.6 g/dL (3.2-4.8); Alkaline Phosphatase 77 U/L (46-116); Anion Gap 10 (5-15); Aspartate Aminotransferase 28 U/L (13-40); BUN/Creatinine Ratio 23.9 (10.0-20.0); Bilirubin, Total 0.8 mg/dL (0.2-1.0); Blood Urea Nitrogen 38 mg/dL (9-23); Carbon Dioxide 28 mmol/L (20-31); Chloride 112 mmol/L (98-107); Glucose 192 mg/dL (74-106); Magnesium 2.3 mg/dL (1.6-2.6); Phosphorus 3.2 mg/dL (2.4-5.1); Potassium 3.4 mmol/L (3.5-5.1); Sodium 150 mmol/L (136-145); Total Protein 5.6 g/dL (5.7-8.2)
[2024-07-31 05:20] LABS: Calcium 8.6 mg/dL (8.7-10.4)
[2024-07-31] MEDS: POTASSIUM CHL 20MEQ/100ML 100 ML IV ONE (06:02)
[2024-07-31 10:00] LABS: INR 1.12 (0.9-1.15); Partial Thromboplastin Time 23.6 SEC (24.5-34.5); Prothrombin Time 11.8 sec (9.3-11.8)
[2024-07-31] MEDS ORDERED: CLINIMIX PER PHARMACY 0 ML IV SCH (12:30)
[2024-07-31] MEDS: ANGIOMAX 250 MG VIAL IV ONE (15:12)
[2024-07-31] MEDS: VERAPAMIL 2.5MG/ML INJ 2ML VIAL IV ONE (15:12)
[2024-07-31] MEDS: SODIUM CHL 0.9% 0 ML ONE (15:13)
[2024-07-31] MEDS: LIDOCAINE 2%HCL (LOCAL ANESTH.) INJ 20ML MDV ONE (15:13)
[2024-07-31] MEDS: HEPARIN SODIUM (PORCINE) 5000 UNITS/ML 1ML VIAL ONE (15:13)
[2024-07-31] MEDS: AMINO ACID INFUSION IN D5W 2,000 ML IV SCH (21:59)
[2024-07-31] MEDS ORDERED: DEXTROSE (50%) 50ML SYRG IV SCH (22:00)
[2024-08-01] VITALS (106 sets, daily range): BP systolic 83–126; BP diastolic 39–87; PULSE 71–90; RESP 2–24; TEMP 97.9–99; O2SAT 90–100
[2024-08-01] MEDS: ACCU-CHEK COMFORT CURVE STRIP VI SCH ×3 (00:20→11:54)
[2024-08-01] MEDS: InsuLIN REG 1unit/0.01ml Soln (100units/ml) SC SCH ×3 (00:20→11:57)
[2024-08-01 04:29] LABS: Basophils # (auto) 0 10 ^3/uL (0-0.2); Eosinophils # (auto) 0 10 ^3/uL (0-0.8); Hematocrit 26.6 % (41.0-53.0); Hemoglobin 8.8 g/dL (13.5-17.5); Lymphocytes # (auto) 0.3 10 ^3/uL (0.4-5.4); Lymphocytes % (auto) 4.7 % (10.0-50.0); Mean Corpuscular Hemoglobin 32.8 pg (28.0-32.0); Mean Corpuscular Hgb Conc. 33.1 g/dL (32.0-36.0); Mean Corpuscular Volume 98.9 fL (80.0-100.0); Monocytes # (auto) 0.2 10 ^3/uL (0-1.3); Neutrophils # (auto) 5.9 10 ^3/uL (1.6-8.6); Neutrophils % (auto) 92.3 % (37.0-80.0); Platelet Count (auto) 119 10^3/uL (140-450); Red Blood Cells 2.69 10^6/uL (4.5-5.90); Red Cell Distribution Width 18.5 % (11.8-14.3); White Blood Cell 6.4 10^3/uL (4.4-10.8)
[2024-08-01 04:43] LABS: Alanine Aminotransferase 38 U/L (7-40); Albumin 3.2 g/dL (3.2-4.8); Alkaline Phosphatase 69 U/L (46-116); Anion Gap 8 (5-15); Aspartate Aminotransferase 16 U/L (13-40); BUN/Creatinine Ratio 21.9 (10.0-20.0); Blood Urea Nitrogen 34 mg/dL (9-23); Calcium 7.7 mg/dL (8.7-10.4); Carbon Dioxide 25 mmol/L (20-31); Chloride 104 mmol/L (98-107); Magnesium 2.1 mg/dL (1.6-2.6); Sodium 137 mmol/L (136-145)
[2024-08-01 04:44] LABS: Bilirubin, Total 0.7 mg/dL (0.2-1.0); Phosphorus 2.8 mg/dL (2.4-5.1); Total Protein 5.3 g/dL (5.7-8.2)
[2024-08-01 04:56] LABS: Glucose 599 mg/dL (74-106)
[2024-08-01] MEDS ORDERED: DEXTROSE (50%) 50ML SYRG IV PRN (06:00)
[2024-08-01] MEDS: POTASSIUM CHL 20MEQ/100ML 100 ML IV SCH (06:27)
[2024-08-01] MEDS ORDERED: DEXTROSE (50%) 50ML SYRG IV SCH (11:30)
[2024-08-01] MEDS: AMIODARONE HCL 200 MG TAB PO ONE (14:45)
[2024-08-01] MEDS ORDERED: LORazepam 2MG/ML-1ML VIAL IV PRN (20:30)
[2024-08-01] MEDS: AMIODARONE HCL 200 MG TAB PO SCH (23:07)
[2024-08-02] VITALS (98 sets, daily range): BP systolic 87–126; BP diastolic 38–90; PULSE 67–97; RESP 11–26; TEMP 97.1–98.6; O2SAT 90–100
[2024-08-02 04:33] LABS: Alanine Aminotransferase 33 U/L (7-40); Albumin 3.5 g/dL (3.2-4.8); Alkaline Phosphatase 76 U/L (46-116); Anion Gap 9 (5-15); Aspartate Aminotransferase 13 U/L (13-40); BUN/Creatinine Ratio 26.7 (10.0-20.0); Blood Urea Nitrogen 40 mg/dL (9-23); Calcium 8.5 mg/dL (8.7-10.4); Carbon Dioxide 25 mmol/L (20-31); Chloride 113 mmol/L (98-107); Glucose 311 mg/dL (74-106); Magnesium 2.1 mg/dL (1.6-2.6); Potassium 3.5 mmol/L (3.5-5.1); Sodium 147 mmol/L (136-145)
[2024-08-02 04:34] LABS: Bilirubin, Total 0.9 mg/dL (0.2-1.0); Phosphorus 2.6 mg/dL (2.4-5.1); Total Protein 5.5 g/dL (5.7-8.2)
[2024-08-02] MEDS: POTASSIUM CHLORIDE 40 MEQ, LIDOCAINE 1% (LOCAL ANESTH.) 4 ML in SODIUM CHL 0.9% 250 ML IV ONE (16:28)
[2024-08-03] VITALS (18 sets, daily range): BP systolic 90–113; BP diastolic 47–81; PULSE 46–90; RESP 14–20; TEMP 97.6–98.1; O2SAT 91–100
[2024-08-03 06:47] LABS: Alanine Aminotransferase 35 U/L (7-40); Albumin 3.6 g/dL (3.2-4.8); Alkaline Phosphatase 81 U/L (46-116); Anion Gap 10 (5-15); Aspartate Aminotransferase 17 U/L (13-40); Blood Urea Nitrogen 33 mg/dL (9-23); Calcium 8.8 mg/dL (8.7-10.4); Carbon Dioxide 21 mmol/L (20-31); Chloride 116 mmol/L (98-107); Magnesium 2.4 mg/dL (1.6-2.6); Potassium 3.8 mmol/L (3.5-5.1); Sodium 147 mmol/L (136-145)
[2024-08-03 06:48] LABS: Glucose 207 mg/dL (74-106); Phosphorus 2.5 mg/dL (2.4-5.1); Total Protein 5.6 g/dL (5.7-8.2)
[2024-08-03] MEDS ORDERED: SOD CHL 0.45% 1,000 ML IV SCH (12:15)
[2024-08-04] VITALS (21 sets, daily range): BP systolic 95–125; BP diastolic 34–66; PULSE 70–102; RESP 16–20; TEMP 97.2–98.3; O2SAT 87–100
[2024-08-04 06:34] LABS: Hematocrit 33.3 % (41.0-53.0); Hemoglobin 10.5 g/dL (13.5-17.5); Mean Corpuscular Hemoglobin 32.2 pg (28.0-32.0); Mean Corpuscular Hgb Conc. 31.7 g/dL (32.0-36.0); Mean Corpuscular Volume 101.7 fL (80.0-100.0); Platelet Count (auto) 114 10^3/uL (140-450); Red Blood Cells 3.27 10^6/uL (4.5-5.90); Red Cell Distribution Width 19.2 % (11.8-14.3); White Blood Cell 9.1 10^3/uL (4.4-10.8)
[2024-08-04 06:39] LABS: Band Neutrophils % (manual) 0; Basophils % (manual) 0 (0.0-2.0); Blast Cells 0; Eosinophils % (manual) 0 (0-7); Metamyelocytes % 0; Myelocytes % 0; Promyelocytes % 0; Reactive Lymphocytes 0
[2024-08-04 06:49] LABS: Alanine Aminotransferase 36 U/L (7-40); Alkaline Phosphatase 78 U/L (46-116); Anion Gap 10 (5-15); Aspartate Aminotransferase 23 U/L (13-40); BUN/Creatinine Ratio 23.6 (10.0-20.0); Blood Urea Nitrogen 35 mg/dL (9-23); Calcium 8.6 mg/dL (8.7-10.4); Carbon Dioxide 19 mmol/L (20-31); Chloride 115 mmol/L (98-107); Glucose 181 mg/dL (74-106); Potassium 3.6 mmol/L (3.5-5.1); Sodium 144 mmol/L (136-145)
[2024-08-04 06:50] LABS: Albumin 3.2 g/dL (3.2-4.8); Bilirubin, Total 0.8 mg/dL (0.2-1.0); Total Protein 5.2 g/dL (5.7-8.2)
[2024-08-04 08:15] LABS: Lymphocytes % (manual) 16 (10.0-50.0); Monocytes % (manual) 2 (0-12); Platelet Estimate Decreased
[2024-08-04] MEDS: methylPREDNISolone SOD SUCC 40 MG/ML VL IV SCH (10:13)
[2024-08-04 10:32] LABS: Base Excess -3.9 mmol/L (-2.0-3.0)
[2024-08-04] MEDS: FUROSEMIDE 20 MG/2 ML VIAL IV ONE (18:36)
[2024-08-05] VITALS (16 sets, daily range): BP systolic 108–137; BP diastolic 57–107; PULSE 55–86; RESP 14–20; TEMP 97.3–98.9; O2SAT 90–100
[2024-08-05 09:05] LABS: Alanine Aminotransferase 49 U/L (7-40); Albumin 3.7 g/dL (3.2-4.8); Alkaline Phosphatase 100 U/L (46-116); Anion Gap 10 (5-15); Aspartate Aminotransferase 22 U/L (13-40); BUN/Creatinine Ratio 25.9 (10.0-20.0); Blood Urea Nitrogen 35 mg/dL (9-23); Calcium 8.8 mg/dL (8.7-10.4); Carbon Dioxide 26 mmol/L (20-31); Chloride 107 mmol/L (98-107); Glucose 159 mg/dL (74-106); Sodium 143 mmol/L (136-145); Total Protein 5.8 g/dL (5.7-8.2)
[2024-08-05] MEDS: predniSONE 20 MG TAB PO SCH (09:53)
[2024-08-05] MEDS: POTASSIUM CHL 20MEQ/100ML 100 ML IV SCH (11:16)
== END 2024-08-05 18:10 | disposition hospice, home (50) | DRG 870 ==
LOC: EDBD 05:40 → ER 05:40 → TELE 12:28 → ICU WEST 07-20 04:29 → TELE-CENTR 08-02 22:25
PROVIDERS: ADMIT Internal Medicine; ATTEND Internal Medicine
PROC: 06HY33Z Insertion of Infusion Device into Lower Vein, Percutaneous Approach (ICD-10-PCS; principal; 2024-07-19)
PROC: 0BH18EZ Insertion of Endotracheal Airway into Trachea, Via Natural or Artificial Opening Endoscopic (ICD-10-PCS; 2024-07-19)
PROC: 5A1955Z Respiratory Ventilation, Greater than 96 Consecutive Hours (ICD-10-PCS; 2024-07-19)
PROC: 02HV33Z Insertion of Infusion Device into Superior Vena Cava, Percutaneous Approach (ICD-10-PCS; 2024-07-22)
PROC: B548ZZA Ultrasonography of Superior Vena Cava, Guidance (ICD-10-PCS; 2024-07-22)
PROC: 4A023N7 Measurement of Cardiac Sampling and Pressure, Left Heart, Percutaneous Approach (ICD-10-PCS; 2024-07-31)
PROC: B211YZZ Fluoroscopy of Multiple Coronary Arteries using Other Contrast (ICD-10-PCS; 2024-07-31)
DX: A41.9 Sepsis, unspecified organism (principal); I46.9 Cardiac arrest, cause unspecified; I49.01 Ventricular fibrillation; J96.01 Acute respiratory failure with hypoxia; R57.0 Cardiogenic shock; G93.41 Metabolic encephalopathy; I50.43 Acute on chronic combined systolic (congestive) and diastolic (congestive) heart failure; I21.4 Non-ST elevation (NSTEMI) myocardial infarction; E46 Unspecified protein-calorie malnutrition; E87.20 Acidosis, unspecified; Z94.84 Stem cells transplant status; G93.1 Anoxic brain damage, not elsewhere classified; C90.01 Multiple myeloma in remission; I31.39 Other pericardial effusion (noninflammatory); D61.818 Other pancytopenia; I13.0 Hypertensive heart and chronic kidney disease with heart failure and stage 1 through stage 4 chronic kidney disease, or unspecified chronic kidney disease; E87.1 Hypo-osmolality and hyponatremia; N39.0 Urinary tract infection, site not specified; R47.01 Aphasia; N17.9 Acute kidney failure, unspecified; E87.6 Hypokalemia; E83.42 Hypomagnesemia; E78.5 Hyperlipidemia, unspecified; F17.200 Nicotine dependence, unspecified, uncomplicated; I49.3 Ventricular premature depolarization; R74.01 Elevation of levels of liver transaminase levels; I34.81 Nonrheumatic mitral (valve) annulus calcification; I07.1 Rheumatic tricuspid insufficiency; I34.0 Nonrheumatic mitral (valve) insufficiency; I27.20 Pulmonary hypertension, unspecified; E11.51 Type 2 diabetes mellitus with diabetic peripheral angiopathy without gangrene; E11.22 Type 2 diabetes mellitus with diabetic chronic kidney disease; N18.32 Chronic kidney disease, stage 3b; F03.90 Unspecified dementia, unspecified severity, without behavioral disturbance, psychotic disturbance, mood disturbance, and anxiety; Z66 Do not resuscitate; I25.5 Ischemic cardiomyopathy; H40.9 Unspecified glaucoma; E86.0 Dehydration; I69.30 Unspecified sequelae of cerebral infarction; Z83.3 Family history of diabetes mellitus; Z82.49 Family history of ischemic heart disease and other diseases of the circulatory system; Z79.4 Long term (current) use of insulin; Z79.899 Other long term (current) drug therapy; Z51.5 Encounter for palliative care; Z68.27 Body mass index [BMI] 27.0-27.9, adult
CPT/HCPCS: 36415; 36569; 36600; 70450; 70551; 71045; 74018; 76705; 76775; 76937; 80048; 80053; 80061; 80202; 81001; 82140; 82306; 82570; 82805; 82962; 83036; 83521; 83605; 83735; 83880; 83970; 84100; 84155; 84156; 84165; 84300; 84443; 84484; 84550; 85007; 85025; 85027; 85379; 85610; 85730; 86850; 86860; 86870; 86880; 86900; 86901; 86905; 86906; 86970; 87040; 87070; 87081; 87086; 87088; 87186; 87205; 92507; 92610; 93005; 93306; 93458; 93970; 94002; 94003; 94640; 95819; 96365; 96375; 97110; 97116; 97163; 97530; 99152; G0378; J0692; J1815; J2003; J2470; J2543; J2704; J3480; J7060